=== PATIENT | male | born 1950 | race Caucasian/White ===

== ENCOUNTER 2024-05-28 12:12 | Emergency (ER) | payer MEDICAID, MEDICARE ==
[~2024-05-28] VITALS: Ht 165.1 cm; Wt 90.9 kg
[~2024-05-28 12:12] MED LIST: ATOR-2 PO; GLIM4TAB7 PO; LISI40TA13 PO; METF-1203 PO; TAMS-55 PO; [UNRECOGNIZED DRUG - CODE] SQ
[2024-05-28 12:30] VITALS: BP 190/103
[2024-05-28] MEDS: TETanus/Pertussis (Acell)/Diphther VAC/PF (Tdap-Adult) 0.5ml syringe IMVAC ONE (12:55)
[2024-05-28] MEDS: LIDOcaine 1% 30ml preserv. free vial IJ STA (13:38)
[2024-05-28] MEDS ORDERED: HYDR-3965 PO (16:08)
[2024-05-28] MEDS ORDERED: CEPH-585 PO (16:08)
[2024-05-28 16:27] VITALS: PULSE 67; RESP 16; TEMP 97; O2SAT 98
== END 2024-05-28 16:29 | disposition home or self-care (01) ==
LOC: ER 12:12
DX: S61.411A Laceration without foreign body of right hand, initial encounter (principal); S62.601A Fracture of unspecified phalanx of left index finger, initial encounter for closed fracture; S60.411A Abrasion of left index finger, initial encounter; S60.811A Abrasion of right wrist, initial encounter; E11.9 Type 2 diabetes mellitus without complications; X58.XXXA Exposure to other specified factors, initial encounter; Y93.89 Activity, other specified; Y92.89 Other specified places as the place of occurrence of the external cause; Y99.8 Other external cause status
CPT/HCPCS: 12002; 73130; 99283; A4565; A6222; A6223; A6402; A6446; A6449; Z7610

== ENCOUNTER 2024-07-28 16:49 | Emergency (ER) | payer MEDICARE, OTHER ==
[~2024-07-28] VITALS: Ht 165.1 cm; Wt 83.0 kg
[2024-07-28 16:53] VITALS: BP 151/89; PULSE 75; RESP 15; O2SAT 97
--- NOTE | 2024-07-28 18:16 | Physician Documentation ---
History of Present Illness ~ Chief Complaint: Laceration Stated Complaint: R ARM LAC Time Seen by MD: 17:39 Primary Medical Doctor: [facility] HPI Patient is seen today with complaints of laceration to his right forearm midshaft ulnar aspect. Patient states this occurred just prior to arrival from a jagged piece of metal. Patient has no other concern or complaint at this time. Tetanus Within 5 Years: No Medication Reconciliation Allergies: Coded Allergies: No Known Allergies (Unverified , 07/24/16) Scheduled Atorvastatin Calcium (Atorvastatin Calcium), 1 TAB PO DAILY, (Reported) Glimepiride* (Amaryl*), 1 TAB PO DAILY, (Reported) Lisinopril* (Lisinopril*), 1 TAB PO DAILY, (Reported) Metformin HCl (Metformin HCl), 2 TAB PO BID, (Reported) Tamsulosin Hcl* (Flomax*), 1 CAP PO DAILY, (Reported) Durable Medical Equipment Blood-Glucose Meter (Accu-Chek Guide Monitor System), STRIP SQ ACHS, (DME) Past Medical History Past Medical History: Kidney Stones, Diabetes, *INFECTIOUS DZ* Past Surgical History: noncontributory Alcohol Use: None Drug Use: none Lives with: Spouse Lives In: Home Occupation: other Review of Systems Constitutional: Denies: chills, fever, weakness Eyes: Denies: pain, blurred vision ENT: Denies: ear pain, nose pain, throat pain, mouth pain Respiratory: Denies: cough, shortness of breath Cardiovascular: Denies: chest pain, palpitations Gastrointestinal: Denies: abdominal pain, nausea, vomiting Genitourinary: Denies: burning, dysuria Male Genitalia: Denies: penile discharge, testicular pain Neurological: Denies: headache, dizziness Musculoskeletal: Denies: pain, swelling Integumentary: Denies: rash, lesions Allergic/Immunologic: Denies: hives, itching Hematologic/Lymphatic: Denies: no symptoms reported Psychiatric: Denies: depression, anxiety Physical Exam Vital Signs: Temperature: 98.2, Source: Temporal, Heart Rate: 75, Respiratory Rate: 15, BP: 151/89, Pulse Oximetry: 97, Weight: 83.000 Physical Exam General: Awake and Alert, no acute distress. HEENT: Conjunctiva pink, Sclera clear, Mucus Membranes moist. Neck: Supple without masses and tenderness. Resp: Unlabored. Lungs clear to auscultation bilaterally. Heart: Regular Rate and rhythm, normal S1 and S2 without murmur, rub or gallop. Abdomen: Soft and non tender no organomegaly Musculoskeletal: Patient is neurovascularly intact distally of right upper extremity and motor function intact distally. Range of motion intact distally. Extremities: No cyanosis,clubbing or edema. Skin: Patient on exam does have a 4 cm laceration to the right forearm about midshaft ulnar aspect. Procedures Laceration/Wound Repair Laceration : Procedure Note Procedure note: 4 cc of 1% lidocaine with epinephrine was used to anesthetize laceration 4 cm laceration of right forearm. Patient tolerated well. Wound was irrigated copiously with normal saline. Patient tolerated well. 4-0 Prolene was used to achieve closure with a running stitch by myself today. Progress Results/Orders Results/Orders Vital Signs 07/28/24 16:53 Temp 98.2 Pulse 75 Resp 15 B/P (MAP) 151/89 Pulse Ox 97 Medical Decision Making Findings Patient is seen today with complaints of laceration to his right forearm midshaft ulnar aspect. Patient states this occurred just prior to arrival from a jagged piece of metal. Patient has no other concern or complaint at this time. Patient did have suture repair of laceration to right forearm today which patient tolerated well. Patient will follow up in 7-10 days for suture removal. Return to ED with any worsening, concerning or changing symptoms. Departure Disposition: 01 HOME / SELF CARE / HOMELESS Impression: Primary Impression: Laceration Condition: Improved Discharge Instructions: Laceration Care, Adult, [id number] Additional Instructions: Patient did have suture repair of laceration to right forearm today which patient tolerated well. Patient will follow up in 7-10 days for suture removal. Return to ED with any worsening, concerning or changing symptoms. Referrals: NO PRIMARY CARE PROVIDER (PCP) Signature Scribe Signature: No scribe Attestation: No scribe JUAN ANTONIO MOCTEZUMA PAC Jul 28, 2024 18:16
[2024-07-28] MEDS: TETanus/Pertussis (Acell)/Diphther VAC/PF (Tdap-Adult) 0.5ml syringe IMVAC ONE (18:24)
[2024-07-28 18:31] VITALS: TEMP 98.2
== END 2024-07-28 18:43 | disposition home or self-care (01) ==
LOC: ER 16:50
DX: S51.811A Laceration without foreign body of right forearm, initial encounter (principal); E11.9 Type 2 diabetes mellitus without complications; X58.XXXA Exposure to other specified factors, initial encounter; Y93.89 Activity, other specified; Y92.89 Other specified places as the place of occurrence of the external cause; Y99.8 Other external cause status
CPT/HCPCS: 12002; 90715; 99283; A6258; A6402; G0008; Z7610; 90471; A6449

== ENCOUNTER 2024-09-20 17:38 | Emergency (ER) | payer MEDICARE, OTHER ==
[~2024-09-20] VITALS: Ht 165.1 cm; Wt 93.2 kg
[~2024-09-20 17:38] MED LIST changes: -LISI40TA13 PO; +LISI40TA20 PO
--- NOTE | 2024-09-20 18:23 | RADIOLOGY REPORT ---
CLINICAL INDICATION: HAND PAIN LEFT TECHNIQUE: 4 radiographic views of the left hand were obtained. Comparison: DI HAND, COMPLETE (3VW MIN) on DOS: 05/28/24, DI HAND, COMPLETE (3VW MIN) on DOS: 05/28/24 FINDINGS/IMPRESSION: There is no evidence of acute fracture or dislocation. There is diffuse demineralization. Mild degene rative changes of the interphalangeal joints. Moderate degenerative changes of the 1st carpometacarp al joint. The alignment is anatomical. There is no radiopaque foreign body.
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
[2024-09-20] MEDS: ibuprofen tablet 400 MG TABLET PO ONE (19:05)
[2024-09-20 19:10] VITALS: BP 168/99; PULSE 79; RESP 18; TEMP 98.6; O2SAT 99
== END 2024-09-20 19:11 | disposition home or self-care (01) ==
LOC: ER 17:40
DX: M79.642 Pain in left hand (principal); E11.9 Type 2 diabetes mellitus without complications
CPT/HCPCS: 29125; 73130; 99283; A6449